=== PATIENT | female | born 1975 | race Caucasian/White ===

== ENCOUNTER → 2020-03-10 07:32 | Outpatient (CLI) | payer BC, SELFPAY ==
--- NOTE | ~2020-03-10 | US_ITS ---
EXAMINATION: US abdomen complete DATE: 03/10/2020 08:20 INDICATION: Abdominal pain, right greater than left. TECHNIQUE: Multiple grayscale and Doppler ultrasound images of the abdomen were obtained. COMPARISON: 01/05/2016 FINDINGS: Minimal abdominal aorta and inferior vena cava. Pancreas is normal. Liver has normal echogenicity and contour, with a smooth surface. No liver lesion identified. No intrahepatic biliary duct dilation hagan spected. Portal venous flow was seen in the hepatopetal, normal direction and has normal Doppler wave form. Gallbladder is not visualized and reportedly surgically absent. Common bile duct is dilated to 8 mm which is within normal limits post cholecystectomy. There is normal renal contour and echogenici ty bilaterally. The right kidney measures 12.5 x 6.2 x 7.1 cm and the left 0.0 x 6.5 x 5.8 cm. 4.1 cm anechoic peripelvic cyst in the right kidney. There is no hydronephrosis. Normal spleen which measu res 11.7 cm in length. IMPRESSION: 1. Mild dilation of the common bile duct without intrahepatic biliary ductal dilation which is within normal limits post cholecystectomy. 2. 4.1 cm right renal peripelvic cyst. Reviewed, dictated and finalized at location A. IMPRESSION: 1. Mild dilation of the common bile duct without intrahepatic biliary ductal di lation which is within normal limits post cholecystectomy. 2. 4.1 cm right renal peripelvic cyst.
== END ==
PROVIDERS: PCP Internal Medicine; Visit Provider Internal Medicine
DX: N28.1 Cyst of kidney, acquired (principal)
CPT/HCPCS: 76700

== ENCOUNTER 2020-05-16 10:03 | Outpatient (CLI) | payer BC, SELFPAY ==
--- NOTE | ~2020-05-16 | US_ITS ---
EXAMINATION: US thyroid EXAM DATE: 05/16/2020 11:01 INDICATION: Thyroid nodule. TECHNIQUE: Multiple grayscale and Doppler images of the thyroid were obtained (by a technologist who performed the scan) and subsequently reviewed. Individual nodules and recommendations may be reporte d in accordance with TI-RADS system as designated by the 2017 ACR White Paper TI-RADS committee. Comp manuelitoson is made to prior examination from 12/10/2017. FINDINGS: The right thyroid lobe measures 3.4 x 1.2 x 1.6 cm, the left measuring 3.7 x 1.4 x 2.1 cm. There is a 3 mm right thyroid lobe nodule. The isthmus mildly thickened at 5 mm. There is a left thyroid nodule measuring 6 mm. Do not appear significantly changed. IMPRESSION: Several small thyroid nodules, not likely clinically significant. Reviewed, dictated and finalized at location A.
== END 2020-05-16 10:04 | disposition home or self-care (01) ==
PROVIDERS: PCP Internal Medicine; Visit Provider Internal Medicine
DX: E04.2 Nontoxic multinodular goiter (principal)
CPT/HCPCS: 76536

== ENCOUNTER → 2020-06-23 12:39 | Outpatient (CLI) | payer BC, SELFPAY ==
--- NOTE | ~2020-06-23 | MM_ITS ---
EXAMINATION: MM screening jose BI w doris HISTORY: Screening TECHNIQUE: Craniocaudal and mediolateral oblique 3-D tomosynthesis images were obtained and synthetic 2-D images were generated. CAD analysis was submitted and interpreted. COMPARISON: Comparison to multiple prior studies sequentially, with oldest reviewed study dated 11/2016. BREAST PARENCHYMAL COMPOSITION: There are scattered areas of fibroglandular density. FINDINGS: There is no evidence of suspicious mass, calcification, or architectural distortion to sugg est malignancy in either breast. There has been no suspicious interval change. IMPRESSION: 1. No mammographic evidence of malignancy. 2. Recommend routine screening mammography in one year. BI-RADS Category 1: Negative Reviewed, dictated and finalized at location A.
== END ==
PROVIDERS: PCP Internal Medicine; Visit Provider Obstetrics & Gynecology
DX: Z12.31 Encounter for screening mammogram for malignant neoplasm of breast (principal)
CPT/HCPCS: 77063; 77067

== ENCOUNTER → 2022-03-12 13:13 | Outpatient (CLI) | payer BC, SELFPAY ==
--- NOTE | ~2022-03-12 | XR_ITS ---
EXAMINATION: XR thoracic spine 3V DATE: 03/12/2022 13:33 INDICATION: Dorsalgia unspecified TECHNIQUE: AP, lateral and lateral swimmer's views of the thoracic spine were obtained. COMPARISON: None. FINDINGS: Bone alignment is normal. There is no fracture. The vertebral body heights are maintained. There is mild loss of intervertebral disc space height at multiple levels in the thoracic spine. Smal l degenerative osteophytes project from the anterior endplates of multiple vertebral bodies. IMPRESSION: 1. Mild thoracic spondylosis without acute findings. Reviewed, dictated and finalized at location F.
== END ==
PROVIDERS: PCP Internal Medicine; Visit Provider Physician Assistant
DX: M47.894 Other spondylosis, thoracic region (principal)
CPT/HCPCS: 72072

== ENCOUNTER → 2022-04-16 10:15 | Outpatient (CLI) | payer BC, SELFPAY ==
--- NOTE | ~2022-04-16 | MM_ITS ---
EXAMINATION: MM screening jose BI w doris HISTORY: Screening mammogram TECHNIQUE: Craniocaudal and mediolateral oblique 3-D tomosynthesis images were obtained and synthetic 2-D images were generated. CAD analysis was submitted and interpreted. COMPARISON: 06/23/2020, 11/29/2018, 11/11/2017 bilateral screening mammogram examinations BREAST PARENCHYMAL COMPOSITION: There are scattered areas of fibroglandular density. FINDINGS: There is no evidence of suspicious mass, calcification, or architectural distortion to sugg est malignancy in either breast. There has been no suspicious interval change. IMPRESSION: 1. No mammographic evidence of malignancy. 2. Recommend routine screening mammography in one year. BI-RADS Category 1: Negative Reviewed, dictated and finalized at location B.
== END ==
PROVIDERS: PCP Internal Medicine; Visit Provider Obstetrics & Gynecology
DX: Z12.31 Encounter for screening mammogram for malignant neoplasm of breast (principal)
CPT/HCPCS: 77063; 77067

== ENCOUNTER 2022-08-18 10:08 | Emergency (ER) | payer BC, SELFPAY ==
[2022-08-18 10:32] VITALS: BP 145/80; PULSE 86; RESP 18; TEMP 36.1; O2SAT 100
--- NOTE | 2022-08-18 12:35 | ED.ALLEREA ---
HPI - Allergic Reaction General Chief complaint: Allergic Reaction Stated complaint: allergic reaction Time Seen by Provider: 08/18/22 11:52 Source: patient Mode of arrival: ambulatory Limitations: no limitations History of Present Illness HPI narrative: Patient is a 47-year-old female who presents to the ED with report of possible allergic reaction. Patient reports around 8:30 AM this morning she began having a flushed sensation throughout her face. She also reported having a strange sensation in her throat and a hive like rash to her upper and lower extremities. She denied any swelling of lips or tongue, difficulty swallowing, difficulty breathing, but did state her throat felt different. She took a Zyrtec this morning and symptoms have since improved. No further rash. She denies any difficulty swallowing or breathing currently. Denies nausea, vomiting. Patient did start new vitamin B complex supplement yesterday morning, 2nd dose today. No other new medications, lotions, facial rashes, make-up, laundry detergents. Related Data Home Medications Medication Instructions Recorded Confirmed diclofenac sodium 75 mg 75 mg PO BID 08/30/19 08/09/22 tablet,delayed release fluticasone propionate 50 1 spray intranasal BID 08/30/19 08/09/22 mcg/actuation nasal spray,suspension (Flonase Allergy Relief) multivitamin 1 tablet PO DAILY 08/30/19 08/09/22 norma (Zingiber officinalis) 250 250 mg PO DAILY 03/03/20 08/09/22 mg capsule turmeric root extract 500 mg 500 mg PO DAILY 03/03/20 08/09/22 capsule lamotrigine 100 mg tablet 200 mg PO BID 08/08/20 08/09/22 aripiprazole 2 mg tablet 5 mg PO DAILY 12/01/20 08/09/22 bupropion HCl 100 mg tablet 200 mg PO BID 12/01/20 08/09/22 atomoxetine 40 mg capsule 40 mg PO DAILY 02/13/21 08/09/22 duloxetine 60 mg capsule,delayed 60 mg PO DAILY 08/09/22 08/09/22 release tetrahydrozoline 0.05 % eye drops 1 drp EACH EYE BID 08/09/22 08/09/22 (Visine) aripiprazole 5 mg tablet mg 08/18/22 08/18/22 atomoxetine 40 mg capsule mg PO 08/18/22 bupropion HCl 200 mg tablet,12 hr mg PO 08/18/22 sustained-release duloxetine 60 mg capsule,delayed mg PO 08/18/22 release lamotrigine 200 mg tablet mg 08/18/22 lisinopril 10 mg tablet mg 08/18/22 Allergies Allergy/AdvReac Type Severity Reaction Status Date / Time metoclopramide Allergy Severe lock jaw Verified 08/18/22 10:32 latex Allergy Mild rash Verified 08/18/22 10:32 Review of Systems Review of Systems: CONSTITUTIONAL: Denies fever, chills, or sweats. ENT: Denies rhinorrhea, congestion, sore throat, dysphagia, swelling of throat/tongue. CARDIOVASCULAR: Denies chest pain. RESPIRATORY: Denies cough or dyspnea. GASTROINTESTINAL: Denies abdominal pain, nausea, vomiting, or diarrhea. SKIN: Reports flushed feeling to face, hive-like rash. NEUROLOGIC: Denies headache, numbness, or weakness. All systems reviewed & are unremarkable except as noted in HPI and below PMFSH Past Medical History Medical History (Updated 08/18/22 @ 19:01 by Susie Gustafson PA-C) Allergic rhinitis Depression Essential (primary) hypertension Pure hypercholesterolemia, unspecified Sleep apnea in adult Thyroid nodule Surgical History Surgical History (Updated 08/18/22 @ 19:01 by Susie Gustafson PA-C) No pertinent past surgical history Family History Family History Mother Hypertension Patient's mother is in good health Family history of elevated blood lipids Father Malignant neoplasm of prostate Hypertension Family history of elevated blood lipids Other Depression Family history of coronary artery disease Family history of malignant neoplasm Social History Social History Smoking status: Never smoker Second hand tobacco smoke exposure: No Alcohol intake: current Lack of Transportation: No Lack of Carrie
[2022-08-18] MEDS: FAMOTIDINE 20 MG TABLET PO (12:43)
[2022-08-18] MEDS: methylPREDNISolone SOD SUCC 125 MG VIAL IM (12:43)
== END 2022-08-18 12:50 | disposition home or self-care (01) ==
PROVIDERS: Emergency Provider Physician Assistant; PCP Internal Medicine
DX: T78.40XA Allergy, unspecified, initial encounter (principal); T50.905A Adverse effect of unspecified drugs, medicaments and biological substances, initial encounter; F32.9 Major depressive disorder, single episode, unspecified; I10 Essential (primary) hypertension; G47.30 Sleep apnea, unspecified; E78.5 Hyperlipidemia, unspecified
CPT/HCPCS: 96372; 99283; A9270; J2930

== ENCOUNTER → 2022-09-06 11:15 | Outpatient (CLI) | payer BC, SELFPAY ==
--- NOTE | ~2022-09-06 | XR_ITS ---
Cervical Spine: AP, lateral, open-mouth views Clinical History: Cervicalgia Findings: There is reversal of the normal cervical lordosis. No fracture or subluxation seen. There i s moderate degenerative disc narrowing at C5-C6, and mild degenerative disc narrowing at C6-C7. Remai leatha disc spaces are preserved. Pre-vertebral soft tissues are unremarkable. Impression: Reversal of the normal cervical lordosis and mild degenerative change, as detailed above. Reviewed, dictated and finalized at location M. LLITE COMMUNICATIONS OPERATOR Impression: Reversal of the normal cervical lordosis and mild degenerative change, as radha led above.
== END ==
PROVIDERS: PCP Internal Medicine; Visit Provider Internal Medicine
DX: M54.2 Cervicalgia (principal)
CPT/HCPCS: 72040

== ENCOUNTER 2022-12-06 01:29 | Day surgery (SDC) | payer BC, SELFPAY ==
[2022-11-23 14:37] VITALS: BMI 33.8
--- NOTE | 2022-11-23 15:06 | PC.NURSE ---
Report to the Outpatient Waiting Room, entrance under the green pavilion located off [facility], at time _11:30AM_ on date _12/06/22 . Planned Procedure Time: _1:30PM . Time changes happen often and if your time is changed the preop area will call you the afternoon before. - You and your visitor will be asked to self-screen and do not enter if you have any COVID symptoms. - Only one visitor is requested with a max of two and NO children visitors are allowed at this time. - The patient visitor may be requested to leave or wait in car when not with patient due to distancing restrictions. - A mask is optional within the hospital at this time. Patients may have clear liquids (water, carbonated beverages, clear teas, apple juice) until 3 hours prior to surgery (10:30) with a maximum of 20 ounces. - No food from midnight until time of surgery Take the following medications with a SIP of water the morning of surgery: __BUPROPRION, DULOXETINE, LAMOTIGRINE, FLONASE IF NEEDED; PATADAY EYE GTTS IF NEEDED DO NOT STOP ANY OF YOUR OTHER PRESCRIPTION MEDICATIONS PRIOR TO SURGERY ?EXCEPT THE FOLLOWING Medications to discontinue per physician GINGER; TUMERIC Date to take last dose___12/03/22 Please no make-up, nail french, hairspray, perfume, deodorant, or body powder the day of surgery. No jewelry (including any body piercings) or valuables the day of surgery, leave them at home. Please take a shower or bath the night before, or the morning of, surgery with an antibacterial soap. Wear comfortable, loose fitting clothing. - Jewelry must be removed prior to entering the operating room. Rings and piercings that are not removed may be cut off. - The hospital will not accept responsibility for valuables. - Please leave all valuables, including medications, at home the day of surgery. If you are going home after surgery, a licensed wagon driver salesperson must drive you home. - NO public transportation without another adult if you receive anesthesia. - We recommend that an adult stay with you for 24 hours following discharge. - We also recommend that you do not drive, make important decision, drink alcoholic beverages, or take any drugs that were not prescribed by your health care provider for at least 24 hours after your discharge time. Follow any additional instructions given to you from your surgeon. If you or anyone in your household have experienced Covid symptoms in the past week, please notify your surgeon or the nurse liaison at the phone number below for possible testing. Telephone instructions given to and asked if any additional questions and then verbalized understanding. Patient advised to call surgeon office or pre surgery nurse liaison [phone] if any additional questions.
[2022-12-06] MEDS: ACETAMINOPHEN 500 MG TABLET 1000 MG PO (08:53)
[2022-12-06] MEDS: LACTATED RINGERS 1,000 ML 30 ML IV CONT (09:21)
[2022-12-06] MEDS: KETOROLAC 15 MG/ML VIAL (*BKC) IV PUSH (09:22)
--- NOTE | 2022-12-06 09:33 | WPDANESEPPF ---
Anes - Initial Pre Proc Eval Procedure: Operation Date: 12/06/22 10:30 Proposed Procedures p Right Carpal Tunnel Release - Gregory Linares MD Date/Time: 12/06/22 09:33 Surgeon: Gregory Linares MD Pre Op Diagnosis: right carpal tunnel syndrome Patient Data Age: 47 Gender: F Height: 1.78 m Weight: 107 kg Allergies Allergy/AdvReac Type Severity Reaction Status Date / Time metoclopramide Allergy Severe lock jaw Verified 12/06/22 08:48 niacin Allergy Severe SOB Verified 12/06/22 08:48 latex Allergy Mild rash Verified 12/06/22 08:48 Home Medications Medication Instructions Recorded Confirmed Type fluticasone propionate 50 1 spray intranasal BID 08/30/19 12/06/22 History mcg/actuation nasal spray,suspension (Flonase Allergy Relief) norma (Zingiber officinalis) 250 250 mg PO BID 03/03/20 12/06/22 History mg capsule turmeric root extract 500 mg 500 mg PO DAILY 03/03/20 12/06/22 History capsule atomoxetine 40 mg capsule 40 mg PO HS 02/13/21 12/06/22 History duloxetine 60 mg capsule,delayed 60 mg PO DAILY 08/09/22 12/06/22 History release aripiprazole 5 mg tablet 5 mg PO HS 08/18/22 12/06/22 History bupropion HCl 200 mg tablet,12 hr 200 mg PO BID 08/18/22 12/06/22 History sustained-release lamotrigine 200 mg tablet 200 mg PO BID 08/18/22 12/06/22 History olopatadine 0.2 % eye drops 1 drp EACH EYE DAILY 09/08/22 12/06/22 History (Pataday Once Daily Relief) lisinopril 10 mg tablet 10 mg PO DAILY #90 tabs 11/16/22 12/06/22 Rx cholecalciferol (vitamin D3) 125 125 mcg PO DAILY 11/23/22 12/06/22 History mcg (5,000 unit) tablet Patient hx anesthesia problems: none Family hx anesthesia problems: none Results Review: All pre-operative results and documents have been reviewed as part of the pre-operative evaluation. [facility] Past Medical History Medical History Allergic rhinitis Anxiety Arthritis Arthritis of right wrist Bilateral carpal tunnel syndrome Bipolar 2 disorder Depression Essential (primary) hypertension Hypertension Inflammatory arthritis Pure hypercholesterolemia, unspecified Sleep apnea in adult Thyroid nodule Surgical History Surgical History History of cholecystectomy History of right knee surgery No pertinent past surgical history Family History Family History Mother Hypertension Patient's mother is in good health Family history of elevated blood lipids Depression Heart disease Father Malignant neoplasm of prostate Hypertension Family history of elevated blood lipids Cancer Depression Heart disease Grandparent Alcoholism Cancer Other Cancer Heart disease Sibling Hypertension Depression Daughter Depression Other Family history of coronary artery disease Family history of malignant neoplasm Social History Social History Smoking status: Never smoker Second hand tobacco smoke exposure: No Alcohol intake: never Substance use: never Substance use type: does not use Lack of Transportation: No Lack of Food: Never True Current Housing: I Have Housing Concerned About Future Housing: No Difficulty Paying Gas/Electric Bills: No Difficulty Paying for Meds: No Currently Unemployed: No Education: Bachelor's Degree Difficulty w/ Childcare or Family Care: No Living arrangements: with family Occupation/Education: occupation Additional occupation/education comments: [employer] Spiritual care concerns: No Anes - Eval Final PreProcedure Day of Procedure 12/06/22 09:33 Patient weight: obese Heart: regular rate and rhythm Lungs: clear to auscultation Airway: Mallampati scale class 1 Neurological: alert and oriented Last oral intake: >/= 8 hours ASA classification: III
[2022-12-06 09:46] VITALS: BP 134/74; PULSE 95; RESP 16; TEMP 36.6; O2SAT 100
--- NOTE | 2022-12-06 09:53 | WPDHPUPDATE1 ---
History and Physical Update Update Date/Time: 12/06/22 09:53 History and Physical has been reviewed, including an updated exam of the patient. There are NO changes in the patient's condition. Risks, benefits, and alternatives have been discussed and questions answered. Patient agrees to proceed with procedure.
[2022-12-06] MEDS: ceFAZolin 2 GM/D5W 50 ML 2 GM/50 ML BAG IVPB (10:26)
[2022-12-06] MEDS: BUPIVACAINE/EPINEPHRINE 0.25% 50 ML VIAL 10 ML INFILTRATE (10:45)
[2022-12-06 11:00] VITALS: BP 126/65; PULSE 97; RESP 14; O2SAT 100
[2022-12-06 11:30] VITALS: BP 127/66; PULSE 88; RESP 16; O2SAT 100
--- NOTE | 2022-12-06 11:32 | W.PM.PROC2 ---
Procedure Note - Detailed Date of Procedure 12/06/22 Pre-op Diagnosis right carpal tunnel syndrome Post-op Diagnosis Same Procedure Performed Open right carpal tunnel release Surgeon Gregory Linares MD [employer] Counter Person Bernice Mazariegos Anesthesia MAC and Local Description of Procedure The patient was identified and proper side identified. After being taken to the operating room and transferred to the OR table, a nonsterile tourniquet was placed high on the right upper extremity, which was prepped and draped in the usual sterile fashion. After IV sedation was administered, the subcutaneous tissue in the area of the incision was infiltrated with several cc of 0.25% Marcaine and epinephrine solution. The extremity was exsanguinated and tourniquet inflated to 250 mmHg remaining up for approximately 4 minutes. A longitudinal incision was over the ulnar aspect of the transverse carpal ligament. Subcutaneous tissue was bluntly dissected down to the ligament, which was identified and then transected longitudinally in line with the incision releasing the contents of the carpal canal. The tourniquet was released. Hemostasis was carried out with bipolar electrocautery. The median nerve had appropriate blush with reperfusion. The wound was irrigated with sterile saline solution. Skin edges were reapproximated with four 0 nylon suture and a sterile dressing was applied. A well-padded volar wrist splint was fashioned with the wrist in a neutral position. Estimated Blood Loss 2 Tourniquet Time 4 Drains No Packing No Pathology None sent Complications No immediate complications Condition Stable Disposition PACU [facility] Billing Surgery - Charge Forward: Surgery Billing ([id number])
== END 2022-12-06 11:47 | disposition home or self-care (01) ==
PROVIDERS: PCP Internal Medicine; Visit Provider Orthopaedic Surgery
PROC: (CPT 64721; principal; 2022-12-06 10:30)
DX: G56.01 Carpal tunnel syndrome, right upper limb (principal); I10 Essential (primary) hypertension; E78.00 Pure hypercholesterolemia, unspecified; G47.30 Sleep apnea, unspecified; F31.81 Bipolar II disorder; F41.9 Anxiety disorder, unspecified; E66.9 Obesity, unspecified; Z68.33 Body mass index [BMI] 33.0-33.9, adult
CPT/HCPCS: 64721; A9270; J0690; J1100; J1885; J2250; J2405; J2704; J3010; J7120

== ENCOUNTER → 2023-09-07 11:02 | Outpatient (CLI) | payer BC, SELFPAY ==
--- NOTE | ~2023-09-07 | MR_ITS ---
MRI of the right hand CLINICAL HISTORY: Pain TECHNIQUE: Axial T1-weighted, T2 fat-sat, and T1 fat-sat images, coronal T1-weighted and T2 fat-sat i mages, and sagittal T1-weighted and T2 fat-sat images were performed. Following intravenous administr ation of 20 cc MultiHance gadolinium, T1-weighted fat-sat imaging was performed in the axial and sagi ttal planes. FINDINGS: There is probable focal subchondral cystic change at the head of the first metacarpal. Bone marrow signals are otherwise unremarkable. No other marrow edema, fracture, or periosteal reaction s een. No evidence for osteomyelitis. No joint effusion seen. Flexor and extensor tendons are intact. Intrinsic musculature is unremarkable. No soft tissue mass or fluid collection seen. No abnormal postcontrast enhancement identified. IMPRESSION: No significant abnormality seen. Reviewed, dictated and finalized at [facility]. VIOL REPAIRER
--- NOTE | ~2023-09-07 | MR_ITS ---
MRI of the left hand CLINICAL HISTORY: Pain TECHNIQUE: Axial T1-weighted, T1 fat-sat, STIR images, coronal T1-weighted and STIR images, and sagit jr T1-weighted and STIR images were acquired. Following intravenous administration of 20 cc MultiHan ce gadolinium, T1-weighted fat-sat imaging was performed in the axial and sagittal planes. FINDINGS: There is focal cystic change at the distal aspect of the third metacarpal, of doubtful clin ical significance. No other bone marrow signal abnormality seen. No marrow edema, fracture, or osteom yelitis. Joint spaces are preserved. No joint effusion seen. Flexor and extensor tendons are intact. Intrinsic musculature is unremarkable. No soft tissue mass or fluid collection seen. No abnormal postcontrast enhancement identified. IMPRESSION: No significant abnormality identified. Reviewed, dictated and finalized at [facility]. LINER
== END ==
PROVIDERS: PCP Internal Medicine; Visit Provider Internal Medicine
DX: M79.642 Pain in left hand (principal); M79.641 Pain in right hand
CPT/HCPCS: 73220; A9577

== ENCOUNTER → 2023-09-09 16:10 | Outpatient (CLI) | payer BC, SELFPAY ==
--- NOTE | ~2023-09-09 | MM_ITS ---
EXAMINATION: MM screening jose BI w doris HISTORY: Screening mammogram TECHNIQUE: Craniocaudal and mediolateral oblique 3-D tomosynthesis images were obtained and synthetic 2-D images were generated. CAD analysis was submitted and interpreted. COMPARISON: 04/16/2022, 06/23/2020, 11/29/2018 bilateral screening mammogram examinations BREAST PARENCHYMAL COMPOSITION: The breasts are almost entirely fatty. FINDINGS: There is no evidence of suspicious mass, calcification, or architectural distortion to sugg est malignancy in either breast. There has been no suspicious interval change. IMPRESSION: 1. No mammographic evidence of malignancy. 2. Recommend routine screening mammography in one year. BI-RADS Category 1: Negative Reviewed, dictated and finalized at location A. TRONICS WARFARE TECHNICIAN
== END ==
PROVIDERS: PCP Obstetrics & Gynecology; Visit Provider Obstetrics & Gynecology
DX: Z12.31 Encounter for screening mammogram for malignant neoplasm of breast (principal)
CPT/HCPCS: 77063; 77067

== ENCOUNTER 2024-12-14 12:47 | Outpatient (CLI) | payer BC, SELFPAY ==
--- NOTE | ~2024-12-14 | MM_ITS ---
EXAMINATION: MM screening [facility] BI w doris HISTORY: Screening TECHNIQUE: Craniocaudal and mediolateral oblique 3-D tomosynthesis images were obtained and synthetic 2-D images were generated. CAD analysis was submitted and interpreted. COMPARISON: 09/09/2023 and dating back to 11/29/2018 BREAST PARENCHYMAL COMPOSITION: There are scattered areas of fibroglandular density. FINDINGS: Stable parenchymal pattern without suspicious microcalcifications, architectural distortion, discrete masses or significant asymmetry. IMPRESSION: 1. No mammographic evidence of malignancy. 2. Recommend routine screening mammography in one year. BI-RADS Category 1: Negative Reviewed, dictated and finalized at location A.
== END 2024-12-14 12:48 | disposition home or self-care (01) ==
LOC: MICIMG 12:49
PROVIDERS: PCP Obstetrics & Gynecology; Visit Provider Obstetrics & Gynecology
DX: Z12.31 Encounter for screening mammogram for malignant neoplasm of breast (principal)
CPT/HCPCS: 77063; 77067